=== PATIENT | male | born 1965 | race American Indian/Alaskan Native ===

== ENCOUNTER 2018-02-15 22:18 | Emergency (ER) | payer MEDICARE ==
[2018-02-16] MEDS ORDERED: TORADOL IV ONE (02:28)
[2018-02-16] MEDS ORDERED: ZOFRAN IV ONE (02:28)
[2018-02-16] MEDS ORDERED: NACL 0.9% 1000 ML 1,000 ML IV ONE (02:28)
--- NOTE | 2018-02-16 02:31 | Emergency Department Report ---
ED Abdominal Pain HPI - General Chief Complaint: Abdominal Pain Stated Complaint: N/V/D Time Seen by Provider: 02/16/18 01:56 Source: patient, EMS Mode of arrival: Wheelchair Limitations: No Limitations - History of Present Illness Initial Comments: 1 day of nausea, vomiting, and diarrhea. This is associated with abdominal pain. The vomit has been nonbloody, nonbilious. He hasn't tried anything at home for it. No sick contacts. Unable keep anything down. No recent antibiotics, medications, hospitalizations. Afebrile. Severity scale (0 -10): 4 Quality: cramping Improves With: nothing Worsens With: eating Associated Symptoms: nausea, vomiting, diarrhea - Related Data Previous Rx's Medication Instructions Recorded Last Taken Type Ondansetron [Zofran TAB] 4 mg PO Q8HR PRN #10 tablet 02/16/18 Unknown Rx Allergies Allergy/AdvReac Type Severity Reaction Status Date / Time No Known Allergies Allergy Unverified 02/15/18 22:51 ED Review of Systems ROS: Stated complaint: N/V/D Other details as noted in HPI Comment: All other systems reviewed and negative ED Past Medical Hx - Past Medical History Previous Medical History?: Yes Hx Hypertension: Yes Hx Congestive Heart Failure: Yes Hx Diabetes: Yes Additional medical history: PAD - Surgical History Past Surgical History?: Yes Additional Surgical History: Lt BKA, 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, heart sx, leg sx - Social History Smoking Status: Never Smoker Substance Use Type: None - Medications Home Medications: Home Medications Medication Instructions Recorded Confirmed Last Taken Type Ondansetron [Zofran TAB] 4 mg PO Q8HR PRN #10 tablet 02/16/18 Unknown Rx ED Physical Exam - General Limitations: No Limitations General appearance: alert, in no apparent distress - Head Head exam: Present: atraumatic, normocephalic - Eye Eye exam: Present: normal appearance - ENT ENT exam: Present: mucous membranes moist - Neck Neck exam: Present: normal inspection - Respiratory Respiratory exam: Present: normal lung sounds bilaterally. Absent: respiratory distress - Cardiovascular Cardiovascular Exam: Present: regular rate, normal rhythm. Absent: systolic murmur, diastolic murmur, rubs, gallop - GI/Abdominal GI/Abdominal exam: Present: soft, tenderness (epigastric, periumbilical), normal bowel sounds - Rectal Rectal exam: Present: deferred - Extremities Exam Extremities exam: Present: other (left BKA) - Back Exam Back exam: Present: normal inspection - Neurological Exam Neurological exam: Present: alert, oriented X3 - Psychiatric Psychiatric exam: Present: normal affect, normal mood - Skin Skin exam: Present: warm, dry, intact, normal color. Absent: rash ED Course Vital Signs 02/15/18 02/15/18 02/16/18 22:36 22:51 01:40 Temperature 98.1 F 98.3 F Pulse Rate 78 79 73 Respiratory 20 18 Rate Blood Pressure 169/95 169/95 Blood Pressure 165/95 [Left] O2 Sat by Pulse 100 99 100 Oximetry 02/16/18 02:00 Temperature Pulse Rate Respiratory Rate Blood Pressure 164/99 Blood Pressure [Left] O2 Sat by Pulse 100 Oximetry ED Medical Decision Making - Lab Data Result diagrams: 02/16/18 02:51 02/16/18 02:51 - Medical Decision Making 52-year-old male with past mental history of multiple comorbidities that presents with vomiting and diarrhea for the past 24 hours. Advised on stable on presentation. Patient clinically well-appearing. Mild abdominal tenderness. Lab work shows a creatinine of 1.6. No prior for comparison. Patient was given 500 mL bolus IV fluids in the ER. After Zofran/Tylenol/Motrin , patient was able to tolerate orals and felt better on reevaluation. I explained the clear liquid diet to the patient. He'll be discharged with Zofran to go home with. Likely the patient has gastroenteritis. Clear for discharge. Critical care attestation.: If time is entered above; I have spent that time in minutes in the direct care of this critically ill patient, excluding procedure time. ED Disposition Clinical Impression: Gastroenteritis Disposition: DC-01 TO HOME OR SELFCARE Is pt being admited?: No Condition: Stable Instructions: Gastroenteritis (ED), Acute Nausea and Vomiting (ED) Prescriptions: Ondansetron [Zofran TAB] 4 mg PO Q8HR PRN #10 tablet PRN Reason: Nausea And Vomiting Referrals: CLARK MANRIQUE MD [Primary Care Provider] - 3-5 Days
[2018-02-16] MEDS ORDERED: NACL 0.9% 500 ML 500 ML IV ONE (02:56)
[2018-02-16 03:03] LABS: Basophils % (Auto) 0.2 % (0.0-1.8); Eosinophils # (Auto) 0.1 K/mm3 (0.0-0.4); Eosinophils % (Auto) 0.9 % (0.0-4.3); Lymphocytes # (Auto) 2.4 K/mm3 (1.2-5.4); Lymphocytes % (Auto) 31.2 % (13.4-35.0); Mean Corpuscular HGB Conc 33 % (32-34); Mean Corpuscular Hemoglobin 26 pg (28-32); Mean Corpuscular Volume 78 fl (84-94); Monocytes # (Auto) 0.6 K/mm3 (0.0-0.8); Monocytes % (Auto) 8.3 % (0.0-7.3); Platelet Count 498 K/mm3 (140-440); Red Blood Count 4.21 M/mm3 (3.65-5.03); Red Cell Distribution Width 16.5 % (13.2-15.2)
[2018-02-16 03:17] LABS: Alanine Aminotransferase 10 units/L (7-56); Albumin 2.1 g/dL (3.9-5); BUN/Creatinine Ratio 6; Blood Urea Nitrogen 10 mg/dL (9-20); Calcium 8.3 mg/dL (8.4-10.2); Hemolysis Index 16
[2018-02-16 03:32] LABS: Bilirubin,Direct < 0.2 mg/dL (0-0.2)
[2018-02-16 06:56] VITALS: BP 165/97
== END 2018-02-16 07:19 | disposition home or self-care (01) ==
LOC: ED 22:18
DX: K52.9 Noninfective gastroenteritis and colitis, unspecified (principal); I10 Essential (primary) hypertension; I50.9 Heart failure, unspecified; E11.9 Type 2 diabetes mellitus without complications
CPT/HCPCS: 36415; 80048; 80074; 83690; 85025; 96374; 96375; 99284; J1885; J2405; J7030; J7040